=== PATIENT | female | born 1955 | race Caucasian/White ===

== ENCOUNTER 2021-03-22 08:36 | Emergency (ER) | payer MEDICARE, SELFPAY ==
[2021-03-22 08:49] VITALS: BP 137/105; PULSE 96; RESP 16; TEMP 36.2; O2SAT 99
--- NOTE | 2021-03-22 09:19 | ED.EAR ---
HPI - Ear Problem General Chief complaint: Ear Stated complaint: Ear Pain Time Seen by Provider: 03/22/21 09:17 Source: patient and RN notes reviewed Mode of arrival: ambulatory Limitations: no limitations History of Present Illness HPI Narrative: 65-year-old female presents with concern for bilateral itchy ears and flaking. She ports she has had this happen before. Reports history of eczema. She denies any ear pain, discharge. Denies upper respiratory symptoms such as rhinorrhea nasal congestion. Denies fever or body aches. Reports feeling like she is hearing through a tunnel MD Complaint: ear pain Related Data Allergies Allergy/AdvReac Type Severity Reaction Status Date / Time No Known Drug Allergies Allergy Unknown Unknown Verified 03/22/21 09:08 Review of Systems Review of Systems: CONSTITUTIONAL: Denies malaise, chills, sweats, or fever. EYES: Denies visual changes, redness, or discharge. ENT: Denies rhinorrhea, congestion, sinus pain, otalgia and sore throat. Reports bilateral ear itching and flakiness CARDIOVASCULAR: Denies chest pain, palpitations, or edema. RESPIRATORY: Denies cough or dyspnea. GASTROINTESTINAL: Denies abdominal pain, nausea, vomiting, diarrhea SKIN: Denies rash or itching. MUSCULOSKELETAL: Denies myalgia. NEUROLOGIC: Denies headache. All systems reviewed & are unremarkable except as noted in HPI and below PMFSH Past Medical History Medical History (Updated 03/22/21 @ 09:25 by Karrie Bolanos NP) Cardiomyopathy Fatty liver Hypertension Hyperthyroidism Status post radioactive iodine ablation. Paroxysmal atrial fibrillation Postablative hypothyroidism Type 2 diabetes mellitus Surgical History Surgical History Status post tonsillectomy Family History Family History Father Patient's father is in good health Sibling Patient's sister is in good health Patient's brother is in good health Mother Patient's mother is Social History Social History Social History: The patient lives in case he Bill with her . They have 4 children. 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 She smoked socially many years ago. She drinks alcohol rarely and in moderation. No drug use. She designates her daughter, Tanja Pedraza, as her surrogate decision maker. She would like to be a full code however would not want to be on long-term life support. Spiritual care concerns: Yes (Judaism) Agree to blood products: Yes Comments At time of signature, agree with nursing past medical, surgical, social and family history. There is no relevant family history pertinent to the presenting complaint Exam Narrative: GENERAL: Well-appearing, well-nourished, and in no acute distress. HEAD: Normocephalic EYES: PERRLA, conjunctivae clear ENT: Nares clear. Mucous membranes moist. TM pearly quintana with dull light reflex bilaterally; no tragal tenderness. Bilateral auditory canals unremarkable, the entrance to the canals is mildly erythematous mildly excoriated with flaky skin. Oropharynx not erythematous without lesions. Tonsils not enlarged and without exudate, no drooling, no hoarseness, no trismus, uvula midline. NECK: Supple. No lymphadenopathy CHEST: Clear to auscultation, breath sounds equal. No wheezing, rhonchi, rales, or stridor. No respiratory distress, speaks in full sentences. HEART: Regular rate and rhythm. No murmur heard. SKIN: Warm, dry, no rash. NEURO: Alert and oriented x3. PSYCH: Normal mood and affect Course Course Emergency Course: Patient is aware of diagnosis, understands and agrees to treatment plan. Anticipatory guidance given. Patient agrees to follow-up as directed and is aware of reasons to seek care at the emergency department. Portions of this record may have been created with voice recognition software
== END 2021-03-22 09:28 | disposition home or self-care (01) ==
PROVIDERS: Emergency Provider Nurse Practitioner; PCP Nurse Practitioner Family
DX: L30.9 Dermatitis, unspecified (principal); I42.9 Cardiomyopathy, unspecified; K76.0 Fatty (change of) liver, not elsewhere classified; I10 Essential (primary) hypertension; E05.90 Thyrotoxicosis, unspecified without thyrotoxic crisis or storm; I48.0 Paroxysmal atrial fibrillation; E11.9 Type 2 diabetes mellitus without complications
CPT/HCPCS: 99213; G0463